=== PATIENT | male | born 1945 ===

== ENCOUNTER 2017-10-04 07:28 | Day surgery (SDC) | payer MEDICARE, MEDICAID ==
[2017-10-04] VITALS (8 sets, daily range): BP systolic 118–143; BP diastolic 88–96
[~2017-10-04] VITALS: Ht 167.6 cm; Wt 70.8 kg
--- NOTE | 2017-10-04 07:48 | Pre-Procedure Note/Attestation ---
Pre-Procedure Note/Attestation Complete Prior to Procedure Planned Procedure: left Procedure Narrative: The endoscopic examination of the upper and the lower GI tract. Indications for Procedure Pre-Operative Diagnosis: R/O Peptic ulcer/Colon polyps/hemorrhoids. Attestation I attest that I discussed the nature of the procedure; its benefits; risks and complications; and alternatives (and the risks and benefits of such alternatives ), prior to the procedure, with the patient (or the patient's legal architectural representative). I attest that, if there was a reasonable possibility of needing a blood transfusion, the patient (or the patient's legal architectural representative) was given the [facility] standardized written summary, pursuant to the Eber Gino Blood Safety Act ([place] Health and Safety Code # 1645, as amended). I attest that I re-evaluated the patient just prior to the surgery and that there has been no change in the patient's H&P, except as documented below: ARIANE,SAID Oct 04, 2017 07:48
--- NOTE | 2017-10-04 07:48 | Short Stay Surgery H&P ---
History of Present Illness History of Present Illness Chief Complaint Acid reflux and rectal bleeding and abdominal pains HPI Maye Andrea is a 72 year old male who was admitted on for Abdominal Pain, Gerd/rectal bleed. Patient History PAST MEDICAL HISTORY: (1) Hyperlipidemia (2) Hypertension Past Surgeries: Social History: Review of Systems Cardiovascular: Reports: no symptoms Respiratory: Reports: no symptoms Skeletal: Reports: no symptoms Gastrointestinal: Reports: gastro esophageal reflux disease Genitourinary: Reports: no symptoms Neurologic: Reports: no symptoms Endocrine: Reports: no symptoms Hematologic: Reports: no symptoms Physical Exam Skin: normal HENT: normal Heart: normal Lungs: normal Abdomen: abnormal Extremities: normal Genitourinary: normal Plan Plan of Care Upper and lower GI endoscopies. Preop Interventions None. Summary of Findings See the reports Final Diagnosis: Attestation Are the patient's medical conditions optimized for surgery? Attestation Response: yes ANTONI THAKKAR Oct 04, 2017 07:48
[2017-10-04] MEDS ORDERED: fentaNYL 100 mcg/2 mL IV ONE (08:00)
[2017-10-04] MEDS ORDERED: Propofol 200mg/20ml IV ONE (08:00)
[2017-10-04] MEDS ORDERED: Midazolam 2mg/2ml Inj ONE (08:00)
[2017-10-04] MEDS ORDERED: LR 1000ml ONE (08:00)
[2017-10-04] MEDS ORDERED: LR 1000ml 1,000 ML IVLG SCH (08:06)
[2017-10-04] MEDS ORDERED: fentaNYL 100 mcg/2 mL IV PRN (08:15)
[2017-10-04] MEDS ORDERED: ASPIR 8181 MG ORAL (08:16)
[2017-10-04] MEDS ORDERED: ATORVASTATIN CA20 MG ORAL (08:20)
[2017-10-04] MEDS ORDERED: FLUTICASONE PRO16 G1 NASAL (08:21)
[2017-10-04] MEDS ORDERED: KLONOPIN1 MG ORAL (08:21)
[2017-10-04] MEDS ORDERED: NEOMYCIN-POLY-7.5 M1 OP (08:22)
[2017-10-04] MEDS ORDERED: PANTOPRAZOLE SO40 MG ORAL (08:23)
[2017-10-04] MEDS ORDERED: STIOLTO RESPIMAT4 GM IH (08:27)
[2017-10-04] MEDS ORDERED: TOBRAMYCIN-DEXAM5 M1 RIGHT EYE (08:28)
[2017-10-04] MEDS ORDERED: TRAZODONE HCL50 MG ORAL (08:28)
--- NOTE | 2017-10-04 08:31 | Endoscopy Procedure Note ---
Endoscopy Procedure Note Indication for Procedure: Abdominal pains and rectal bleeding. GERDs. Procedures Performed: EGD - Small hiatal Hernia otherwise completely normal upper GI endoscopy. Biopsy was done per random from gastric body., colonoscopy - Small Internal Hemorrhoids with left colonic diverticulosis; otherwise normal Colonoscopy. Specimen: yes Pt Tolerated Procedure Well: Yes Estimated Blood Loss: none Anesthesiologist: Dr. Wright Anesthesia: moderate sedation Medication Given: see anesthesia record Implant(s) used?: No 50 yrs or older w/o bx or poly: Yes 10yrs. F/U not recommended: Yes If not recommended, why?: 10 yrs. F/U needed: Yes 18 years or older w/prev. colo: No Med reason:<3 yrs.: System Reason:<3 yrs.: Last colonoscopy >= to 3yrs: Yes ANTONI THAKKAR Oct 04, 2017 08:30
--- NOTE | 2017-10-04 08:31 | Discharge Instructions ---
Discharge Instructions Discharge Instructions Follow up with: see the docotor in 10 days in office. For Congestive Heart Failure Reminder Report to your physician any weight gain of 5 pounds or more in one week. ANTONI THAKKAR Oct 04, 2017 08:31
--- NOTE | 2017-10-04 17:30 | Procedure Note ---
DATE OF PROCEDURE: 10/04/2017 SURGEON: Sarath Garcia M.D. PROCEDURE: Esophagogastroduodenoscopy with biopsy. PREOPERATIVE DIAGNOSES: 1. Abdominal pain. 2. History of gastroesophageal reflux, rule out gastritis. 3. Peptic ulcer disease. POSTOPERATIVE DIAGNOSIS: A small hiatal hernia, otherwise complete normal upper gastrointestinal endoscopy. Biopsy was taken per random from gastric body. MEDICATION USED: Per anesthesiologist, Dr. Wright. INSTRUMENT: GIF Olympus upper GI video endoscope. DESCRIPTION OF PROCEDURE: The patient after arriving at endoscopy unit was told about risks and benefits of the procedure, which he accepted and signed informed consent. At this time, he was put in the left lateral decubitus position. After adequate IV sedation, the scope was gently passed through the cricopharyngeal area, was lodged into the upper esophagus, and was gradually advanced towards gastroesophageal junction. The entire length of the esophagus looked normal and no evidence of inflammatory process, ulceration, stricture, etc. was found. There was however evidence of a small hiatal hernia without Portillo's. At this time, the scope was advanced into the stomach. Gastric cavity was distended with insufflation of air. The areas of the fundus, the body, and the antrum were examined which revealed evidence of normal mucosal coverage with no evidence of ulcers, tumors, polyps, etc. One random biopsy from gastric body was obtained. Subsequently, a retroflexion maneuver was applied. The area of the gastroesophageal junction was examined in a retrograde fashion, which revealed normal finding. At this point, the scope was advanced towards the antrum and from there into pylorus. First and second portion of the duodenum were also found to be completely normal. Finally, the scope was pulled out. The procedure was terminated. The patient tolerated the procedure well. Sarath Garcia M.D. DR: Rosamaria JOB#: [id number] CC:
--- NOTE | 2017-10-04 17:45 | Procedure Note ---
DATE OF PROCEDURE: 10/04/2017 SURGEON: Sarath Garcia M.D. PROCEDURE: Total colonoscopy. PREOPERATIVE DIAGNOSES: 1. Rectal bleeding. 2. Abdominal pain. POSTOPERATIVE DIAGNOSES: 1. Evidence of a small internal hemorrhoid. 2. Left colonic diverticulosis, otherwise complete normal total colonoscopy up to the base of the cecum as examined. MEDICATIONS USED: Per Dr. Wright. INSTRUMENT: GIF Olympus video colonoscope. DESCRIPTION OF PROCEDURE: The patient after arriving at endoscopy unit was told about risks and benefits of the procedure, which he accepted and signed informed consent. He was then put in the left lateral decubitus position and examination of the rectum revealed evidence of external hemorrhoidal tag and when the instrument was advanced with a retroflexion in the rectum, it revealed evidence of minimal internal hemorrhoids which were not friable. The rest of the rectum was completely normal. At this point, the scope was passed into the left colon and gradually advanced toward the splenic flexure. This area revealed evidence of scattered diverticular lesions allover, but there was no evidence of any inflammatory process, ulcers, tumors, polyps, bleeding site, colitis, etc. Finally upon reaching to the splenic flexure, the scope was guided into the transverse colon reaching to hepatic flexure and was guided into the right side all the way to the base of the cecum. All these areas remained to be completely normal and no evidence of pathology was found. The colon cleanup was adequate and within 7 minutes, the scope was gradually pulled out and no other pathological findings were noted except what was stated earlier. The patient tolerated the procedure well and left the endoscopy room in good condition. Sarath Garcia M.D. DR: LUCY JOB#: [id number] CC:
== END 2017-10-04 10:00 | disposition home or self-care (01) ==
LOC: GAS 07:28
DX: K64.8 Other hemorrhoids (principal); K57.30 Diverticulosis of large intestine without perforation or abscess without bleeding; K44.9 Diaphragmatic hernia without obstruction or gangrene; E78.5 Hyperlipidemia, unspecified; I10 Essential (primary) hypertension; K21.9 Gastro-esophageal reflux disease without esophagitis; Z87.11 Personal history of peptic ulcer disease; K29.50 Unspecified chronic gastritis without bleeding
CPT/HCPCS: 43239; 45378; J2250; J2704; J3010; J7120; 94003; 94150